=== PATIENT | female | born 1955 | race Two or more races ===

== ENCOUNTER 2017-08-28 15:49 | Emergency (ER) | payer BC, OTHER ==
[~2017-08-28] VITALS: Ht 165.1 cm; Wt 79.4 kg
[2017-08-28 15:50] VITALS: BP 131/66
== END 2017-08-28 20:09 | disposition home or self-care (01) ==
LOC: ER 15:54
DX: J06.9 Acute upper respiratory infection, unspecified (principal); I10 Essential (primary) hypertension; Z90.710 Acquired absence of both cervix and uterus
CPT/HCPCS: 86403-TC; 87070-TC; A4606; Z7610